=== PATIENT | female | born 1985 | race Caucasian/White ===

== ENCOUNTER 2017-05-27 02:14 | Emergency (ER) | payer SELFPAY ==
[~2017-05-27] VITALS: Ht 162.6 cm; Wt 54.4 kg
[2017-05-27 02:27] VITALS: BP 118/78
--- NOTE | 2017-05-27 03:07 | NUR ---
DR. HUDDLESTON AT BEDSIDE FOR EVAL.
[2017-05-27] MEDS ORDERED: IBUPROFEN 400 MG TABLET ONE (03:10)
[2017-05-27] MEDS ORDERED: ACETAMINOPHEN ES 500 MG TABLET ONE (03:10)
[2017-05-27] MEDS: ACETAMINOPHEN 325 MG TABLET PO ONE (03:13)
[2017-05-27] MEDS: IBUPROFEN 400 MG TABLET PO ONE (03:13)
== END 2017-05-27 03:24 | disposition home or self-care (01) ==
LOC: ER 02:14
DX: J02.8 Acute pharyngitis due to other specified organisms (principal)
CPT/HCPCS: A4606; Z7610

== ENCOUNTER 2017-05-27 19:32 | Emergency (ER) | payer SELFPAY | END 2017-05-27 19:55 | disposition left against medical advice (07) | LOC: ER 19:34 | DX: Z53.21 Procedure and treatment not carried out due to patient leaving prior to being seen by health care provider (principal) ==